=== PATIENT | male | born 1960 | race Caucasian/White ===

== ENCOUNTER → 2017-10-29 09:11 | Outpatient (CLI) | payer BC, SELFPAY ==
[2017-10-29 09:53] LABS: Blood Urea Nitrogen 15 mg/dL (7-18); Creatinine,Serum 1.25 mg/dL (0.70-1.30); Estimated Glomerular Filt Rate 59 ml/min (>60); GFR (African American) 72 ML/MIN (>60)
--- NOTE | 2017-10-29 09:57 | CT_ITS ---
CT abdomen pelvis w con CLINICAL INDICATION: Left-sided abdominal pain radiating into the groin, left inguinal pain ITS.REASON: DEEP LEFT INGUINAL PAIN ORDERING PHYSICIAN: Kobe Monterroso MD PATIENT AGE: 57 years COMPARISON: None TECHNIQUE: Axial images obtained with sagittal and coronal reformats. PROCEDURE: Oral Contrast: None IV Contrast: 75 mL of Isovue-[id number]. FINDINGS: Lung bases are clear. The liver, spleen, adrenal glands, and pancreas are unremarkable. No radio opaque gallstones. No renal mass, hydronephrosis, or obstructing ureteral calculus. Unremarkable appendix. No intestinal obstruction or free air. No evidence of diverticulitis. No pelvic mass, focal inflammatory change, or abnormal fluid collection. No evidence of inguinal hernia or inguinal adenopathy. Shotty nodes are present in both inguinal regions nonspecific. No abdominal wall hernia or mass. Unremarkable appearing urinary bladder. Mild degenerative changes lumbar spine. IMPRESSION: Negative CT abdomen pelvis. No mass or focal inflammatory change. No evidence of inguinal hernia or adenopathy.
== END ==
PROVIDERS: Family Provider Family Medicine; PCP Family Medicine; Visit Provider Family Medicine
DX: R10.30 Lower abdominal pain, unspecified (principal)
CPT/HCPCS: 36415; 74177; 82565; 84520; Q9967

== ENCOUNTER → 2017-11-14 12:54 | Outpatient (CLI) | payer BC, SELFPAY ==
--- NOTE | 2017-11-14 12:59 | MR_ITS ---
MR lumbar spine wo con, MR 3-d myelogram/MRCP HISTORY: Low back Pain, Left hip pain, tingling/numbness down leg, better with sitting, symptoms x3-4 years. ITS.REASON: LUMBAR BACK PAIN WITH RADICULOPATHY LEFT LOWER LEG ORDERING PHYSICIAN: Vivek Goodwin MD PATIENT AGE: 57 years COMPARISON: None TECHNIQUE: Standard multiplanar multiecho sequences are performed without contrast. 3-D MIP and myelographic images are also rendered and reviewed FINDINGS: There is normal alignment. The spinal cord ends at the L1-L2 level. There is straightening of the lumbar lordosis. L1-L2: Minimal disc desiccation. L2-L3: Mild degenerative disc disease with bulging disc anteriorly. Small annular tear involves posterior aspect of the disc without significant protrusion. L3-L4: Unremarkable. L4-5: Mild disc desiccation centrally L5-S1: Degenerative disc disease with mild concentric bulging disc along with mild facet hypertrophic change with mild bilateral foraminal narrowing. There are small endplate osteophytes as well. No canal stenosis or disc herniation. IMPRESSION: 1. Mild lumbar spondylosis as detailed above. Please above for detailed description at each level. 2. Small annular tear at L2-L3 without disc protrusion. 3. Degenerative disc disease at L5-S1 with mild concentric bulging disc along with mild facet hypertrophic change with mild bilateral foraminal narrowing. There are small endplate osteophytes as well 4. No disc herniation or canal stenosis
== END ==
PROVIDERS: Family Provider Family Medicine; PCP Family Medicine; Visit Provider Family Medicine
DX: M54.17 Radiculopathy, lumbosacral region (principal)
CPT/HCPCS: 72148; 76376

== ENCOUNTER → 2017-12-23 14:18 | Outpatient (CLI) | payer BC, SELFPAY ==
[2017-12-26 15:52] LABS: H. pylori Breath Test Negative (Negative)
== END ==
PROVIDERS: Visit Provider Nurse Practitioner
DX: R11.0 Nausea (principal); R76.8 Other specified abnormal immunological findings in serum
CPT/HCPCS: 83013

== ENCOUNTER → 2017-12-30 08:14 | Outpatient (POV) | payer BC, SELFPAY | PROVIDERS: Family Provider Family Medicine; PCP Family Medicine; Visit Provider Physician Assistant | DX: Z00.00 Encounter for general adult medical examination without abnormal findings (principal) ==

== ENCOUNTER → 2018-04-15 07:45 | Outpatient (CLI) | payer BC, SELFPAY ==
--- NOTE | 2018-04-15 07:47 | CT_ITS ---
CT lung screening EXAM: CT LUNG LOW DOSE WO CONTRAST HISTORY: 57-year-old male with 40 pack-year smoking history asymptomatic ITS.REASON: CURRENT TOBACCO USE ORDERING PHYSICIAN: Vivek Goodwin MD PATIENT AGE: 57 years COMPARISON: None TECHNIQUE: The exam was performed on a GE Light Speed [address] scanner using 2.90 mGy CTDI. A low dose helical CT CHEST was performed on a multi-detector scanner. All CT scans at the facility use one or more dose reduction, viz: automated exposure control, ma/kV adjustment per patient size (including targeted exams where dose is matched to indication, i.e. head), or iterative reconstruction technique. The LDCT was performed in a facility that meets the criteria for the screening program. Data regarding this exam was submitted to [employer] which is an approved registry. The order for this exam indicates that it came as a result of a lung cancer screening counseling shard decision-making visit that included all the elements required of such a visit including smoking cessation. The radiologist interpreting this exam meets the CMS criteria for the LDCT lung cancer screening program. The exam is reported using the Lung-RADS classification scale and reported to the [employer]CR registry. NOTE: This study was performed for the specific purposes of lung cancer screening and is not an alternative to diagnostic chest CT. RADIATION DOSE: CTDI vol(CT dose Index-volume) = 2.90mG DLP (Dose Length Product) = 115.68 mGcm FINDINGS: Fibrotic changes are present in the apices. No suspicious pulmonary nodules identified. There is mild hyperinflation with attenuation of peripheral pulmonary vessels consistent with obstructive chronic bronchitis. There are mild fibrotic changes in the lung bases and there is a calcified granuloma in the right lower lobe posteriorly. Coronary artery calcifications are present. IMPRESSION: 1. Lung RADS Category: 2, benign 2. Other findings: Coronary artery calcifications RECOMMENDATIONS: 12 month LDCT follow-up
== END ==
PROVIDERS: Family Provider Family Medicine; PCP Family Medicine; Visit Provider Family Medicine
DX: Z12.2 Encounter for screening for malignant neoplasm of respiratory organs (principal); Z87.891 Personal history of nicotine dependence

== ENCOUNTER 2024-04-20 10:37 | Outpatient (CLI) | payer MEDICAID, SELFPAY ==
[2024-04-20 18:30] LABS: Basophils % 0.5 % (0.1-2.0); Eosinophils # 0.3 K/mm3 (0.0-0.4); Eosinophils % 3.5 % (0.1-12.0); Hematocrit 52.6 % (42.0-52.0); Hemoglobin 17.2 g/dL (14.1-18.0); Lymphocytes # 1.5 K/mm3 (0.7-4.5); Lymphocytes % 18.5 % (10-50); Mean Corpuscular HGB Conc 32.8 g/dL (31.8-35.4); Mean Corpuscular Hemoglobin 31.9 pg (27.0-31.2); Mean Corpuscular Volume 97.1 fl (80-94); Mean Platelet Volume 8.8 fl (7.4-10.4); Monocytes # 0.6 K/mm3 (0.1-1.0); Monocytes % 7.6 % (1.7-9.3); Neutrophils # 5.6 K/mm3 (1.8-7.8); Neutrophils % 69.9 % (37.0-80.0); Platelet Count 259 K/mm3 (142-424); Red Blood Count 5.41 M/mm3 (4.60-6.20); Red Cell Distribution Width 13.9 % (11.5-17.5)
[2024-04-20 18:47] LABS: Alanine Aminotransferase 20 U/L (12-78); Albumin Level 4.3 g/dl (3.5-5.0); Albumin/Globulin Ratio 1.4 (1.1-1.8); Alkaline Phosphatase 133 U/L (38-126); Aspartate Amino Transferase 32 U/L (17-59); Bilirubin,Total 0.6 mg/dl (0.2-1.3); Blood Urea Nitrogen 12 mg/dl (9-20); Calcium 9.7 mg/dl (8.4-10.2); Carbon Dioxide 27 mmol/L (22.0-30.0); Chloride 106 mmol/L (98-107); Estimated Glomerular Filt Rate 75 ml/min (>60); GFR (African American) 91 ML/MIN (>60); Glucose 101 mg/dl (74-100); Sodium 141 mmol/L (136-145); Total Protein,Serum 7.3 g/dl (6.3-8.2)
[2024-04-20 19:12] LABS: Thyroid Stimulating Hormone 9.45 uIU/mL (0.465-4.68)
[2024-04-20 19:38] LABS: Hemoglobin A1C 5.9 % (4.0-6.0)
== END 2024-04-20 23:59 | disposition home or self-care (01) ==
LOC: LAB.DROPOF 04-21 10:39
PROVIDERS: PCP Nurse Practitioner; Visit Provider Nurse Practitioner
DX: E78.5 Hyperlipidemia, unspecified (principal); I25.10 Atherosclerotic heart disease of native coronary artery without angina pectoris; I10 Essential (primary) hypertension; Z72.0 Tobacco use
CPT/HCPCS: 80050; 80053; 83036; 84443; 85025